=== PATIENT | female | born 1970 | race Caucasian/White ===

== ENCOUNTER 2021-06-19 13:41 | Emergency (ER) | payer OTHER ==
--- NOTE | 2021-06-19 14:49 | EDM.PDOC ---
ED HPI GENERAL MEDICAL PROBLEM - General Chief Complaint: Laceration Stated Complaint: CUT ON HEAD Time Seen by Provider: 06/19/21 14:36 Source of Information: Reports: Patient, RN Notes Reviewed History Limitations: Reports: No Limitations - History of Present Illness INITIAL COMMENTS - FREE TEXT/NARRATIVE: 50-year-old female presents emergency department today with a laceration above her right eye she injured herself when she was working on her deer stand there was no loss of consciousness no other trauma bleeding is controlled - Related Data Allergies Allergy/AdvReac Type Severity Reaction Status Date / Time Penicillins Allergy Rash Verified 06/19/21 14:24 Home Meds: Home Meds Calcium Carbonate [Calcium] 500 mg PO DAILY 06/19/21 [History] Furosemide [Lasix] 40 mg PO DAILY 06/19/21 [History] Levothyroxine 112 mcg PO DAILY 06/19/21 [History] Metoprolol Tartrate 25 mg PO BID 06/19/21 [History] atorvaSTATin [Lipitor] 20 mg PO DAILY 06/19/21 [History] buPROPion HCL [Bupropion Xl] 150 mg PO DAILY 06/19/21 [History] Past Medical History Cardiovascular History: Reports: High Cholesterol, Hypertension Endocrine/Metabolic History: Reports: Hypothyroidism Social & Family History - Tobacco Use Tobacco Use Status *Q: Never Tobacco User - Recreational Drug Use Recreational Drug Use: No ED ROS GENERAL - Review of Systems Review Of Systems: See Below Skin: Reports: Wound ED EXAM, SKIN/RASH Exam: See Below Text/Narrative:: Examination of the integument system there is a 2 cm superficial laceration in the forehead above the right eye bleeding is controlled Exam Limited By: No Limitations General Appearance: Alert, WD/WN, No Apparent Distress ED SKIN PROCEDURES - Laceration/Wound Repair Right Face Appearance: Superficial Skin Prep: Saline Saline Irrigation (cc's): 20 Exploration/Debridement/Repair: Wound Explored, In a Bloodless Field, Explored to Base Closed with: Dermabond Lac/Wound length In cm: 2 Sterile Dressing Applied: None Tetanus Status Addressed: Yes Complications: No Course - Vital Signs Last Recorded V/S: Last Vital Signs Temp 97.1 F 06/19/21 14:30 Pulse 80 06/19/21 14:30 Resp 20 06/19/21 14:30 BP 187/82 H 06/19/21 14:30 Pulse Ox 98 06/19/21 14:30 Departure - Departure Time of Disposition: 14:48 Disposition: Home, Self-Care 01 Condition: Good Clinical Impression: Facial laceration Qualifiers: Encounter type: initial encounter Qualified Code(s): S01.81XA - Laceration without foreign body of other part of head, initial encounter - Discharge Information Instructions: Laceration Care, Adult Referrals: Hiro Winters MD [Primary Care Provider] - Additional Instructions: Try and keep this dry for the next 24 hours, the more it gets wet the faster it will wear off, follow-up with primary care as needed call or return to the emergency department worsening symptoms Sepsis Event Note (ED) - Evaluation Sepsis Screening Result: No Definite Risk - Focused Exam Vital Signs: Vital Signs Temp Pulse Resp BP Pulse Ox 06/19/21 14:30 97.1 F 80 20 187/82 H 98 06/19/21 14:26 97.1 F 80 20 187/82 H 98 - Assessment/Plan Plan: Assessment Acuity = acute Site and laterality = 2 cm laceration forehead right side Etiology = trauma deer stand Manifestations = none Location of injury = Home Lab values = none Plan Tetanus done in 2018 follow-up with primary care as needed. This note was dictated using [employer] voice recognition software please call with any questions on syntax or grammar.
== END 2021-06-19 14:57 | disposition home or self-care (01) ==
LOC: JP.ED 13:41
DX: S01.81XA Laceration without foreign body of other part of head, initial encounter (principal); E78.00 Pure hypercholesterolemia, unspecified; I10 Essential (primary) hypertension; E03.9 Hypothyroidism, unspecified; Z79.899 Other long term (current) drug therapy; W29.8XXA Contact with other powered hand tools and household machinery, initial encounter
CPT/HCPCS: 12011; 99282-25

== ENCOUNTER 2022-02-07 18:29 | Emergency (ER) | payer OTHER ==
[2022-02-07] MEDS ORDERED: Clindamycin HCl 150 MG Cap PO ONE (19:24)
== END 2022-02-07 20:12 | disposition home or self-care (01) ==
LOC: JP.ED 18:29
DX: S61.431A Puncture wound without foreign body of right hand, initial encounter (principal); E78.00 Pure hypercholesterolemia, unspecified; I10 Essential (primary) hypertension; E03.9 Hypothyroidism, unspecified; Z88.0 Allergy status to penicillin; Z79.899 Other long term (current) drug therapy; W26.8XXA Contact with other sharp object(s), not elsewhere classified, initial encounter; Y99.0 Civilian activity done for income or pay
CPT/HCPCS: 99281; 99283; A9270

== ENCOUNTER 2022-10-27 06:43 | Day surgery (SDC) | payer OTHER ==
[2022-10-27] MEDS ORDERED: fentaNYL 100 MCG/2 ML SDV ONE (07:28)
[2022-10-27] MEDS ORDERED: Propofol 200 MG/20 ML SDV ONE (07:28)
[2022-10-27] MEDS ORDERED: Midazolam 1 MG/ML 2 ML SDV ONE (07:28)
[2022-10-27] MEDS ORDERED: Sodium Chloride 0.9% 1,000 ML IV SCH (07:30)
== END 2022-10-27 10:20 | disposition home or self-care (01) ==
LOC: JP.SDS 06:43
PROVIDERS: ATTEND Surgery
DX: Z12.11 Encounter for screening for malignant neoplasm of colon (principal); K21.9 Gastro-esophageal reflux disease without esophagitis; I10 Essential (primary) hypertension; Z87.891 Personal history of nicotine dependence; Z79.899 Other long term (current) drug therapy
CPT/HCPCS: 45378; J2250; J2704; J3010; J7030

== ENCOUNTER 2023-08-03 08:52 | Day surgery (SDC) | payer OTHER ==
[~2023-08-03 08:52] MED LIST: Midazolam 1 MG/ML 2 ML SDV ONE; Propofol 200 MG/20 ML SDV ONE; fentaNYL 100 MCG/2 ML SDV ONE
[2023-08-03] MEDS: Lactated Ringers 1,000 ML IV SCH (11:04)
== END 2023-08-03 14:00 | disposition home or self-care (01) ==
LOC: JP.SDS 08:52
PROVIDERS: ATTEND Student in an Organized Health Care Education/Training Program
DX: K21.00 Gastro-esophageal reflux disease with esophagitis, without bleeding (principal); K29.50 Unspecified chronic gastritis without bleeding; I10 Essential (primary) hypertension; F41.9 Anxiety disorder, unspecified; E03.9 Hypothyroidism, unspecified; E66.9 Obesity, unspecified; Z68.34 Body mass index [BMI] 34.0-34.9, adult; Z79.899 Other long term (current) drug therapy; Z79.890 Hormone replacement therapy; Z88.0 Allergy status to penicillin; Z88.8 Allergy status to other drugs, medicaments and biological substances; Z91.09 Other allergy status, other than to drugs and biological substances
CPT/HCPCS: 36415; 84443; 88305; J2250; J2704; J3010; J7120